=== PATIENT | female | born 1950 | race Caucasian/White ===

== ENCOUNTER 2019-07-25 17:37 | Emergency (ER) | payer BC, OTHER ==
[2019-07-25 17:55] VITALS: BP 137/72; PULSE 88; TEMP 99.6; BMI 28.9
[2019-07-25] MEDS ORDERED: SODIUM CHLORIDE 0.9% 1000 ML INFUS.BAG IV ONE (18:02)
[2019-07-25] MEDS ORDERED: KETOROLAC TROMETHAMINE 15 MG/ML VIAL IVPUSH ONE ×2 (18:02→20:35)
--- NOTE | 2019-07-25 18:08 | PDOC ---
History of Present Illness - General Chief Complaint: Pain Stated Complaint: llq pain, urinary Time Seen by Provider: 07/25/19 17:44 - History of Present Illness Initial Comments: 07/25/19 18:02 69yo female with hx of breast ca s/p double mastectomy, lymph node dissection on the L and hysterectomy with L flank pain today. States pain has been present x 2 days. States assoc with urinary urgency and dark coloration to her urine. No foul odor. NO f/c. C/o intermittent colicky pain in her lower abd that radiates to her groin. Denies vomting or diarrhea. Has had assoc nausea. No prior episodes of similar. Hx of lbp - had a steroid injection to her back a month ago, but had left over tramadol which she took today without relief of the pain. Pt denies cp/sob. No cough. No other complaints. PMHx: breast ca, dvt, emphysema Pshx: b/l mastectomy, hysterectomy All: cipro and keflex 07/25/19 18:08 Past History - Past Medical History Allergies/Adverse Reactions: Allergies Allergy/AdvReac Type Severity Reaction Status Date / Time ciprofloxacin [From Cipro] Allergy Verified 04/13/13 16:15 ciprofloxacin HCl Allergy Verified 04/13/13 16:15 [From Cipro] CODIENE Allergy Uncoded 04/13/13 16:15 Home Medications: Ambulatory Orders Hydrochlorothiazide 50 mg PO 03/05/13 Ondansetron [Zofran *Odt*] 4 mg SL TID PRN #10 od.tablet 03/05/13 Progesterone, Micronized [Progesterone] 200 mg PO 03/05/13 Rosuvastatin Calcium [Crestor] 20 mg PO 03/05/13 Asthma: Yes Cancer: Yes COPD: No GI Disorders: Yes (GERD) HTN: Yes Hypercholesterolemia: Yes - Psycho Social/Smoking Cessation Hx Smoking Status: No Smoking History: Never smoked Have you smoked in the past 12 months: No Number of Cigarettes Smoked Daily: 0 Information on smoking cessation initiated: No Hx Alcohol Use: No Drug/Substance Use Hx: No Review of Systems - Review of Systems Able to Perform ROS?: Yes Is the patient limited Sinhala proficient: No Constitutional: No: Chills, Fever HEENTM: No: Nose Pain, Throat Pain Respiratory: No: Cough, Shortness of Breath Cardiac (ROS): No: Chest Pain, Palpitations ABD/GI: Yes: Nausea, Other (L flank pain). No: Diarrhea, Vomiting : Yes: Frequency, Flank Pain, Urgency. No: Burning, Dysuria, Hematuria Musculoskeletal: No: Back Pain Integumentary: No: Rash Neurological: No: Headache, Tingling, Ataxia All Other Systems: Reviewed and Negative *Physical Exam - Vital Signs Last Vital Signs Temp Pulse Resp BP Pulse Ox 99.6 F 88 20 137/72 94 L 07/25/19 17:38 07/25/19 17:38 07/25/19 17:38 07/25/19 17:38 07/25/19 17:38 - Physical Exam General Appearance: Yes: Nourished, Appropriately Dressed. No: Apparent Distress HEENT: positive: Normal Voice Neck: positive: Supple Respiratory/Chest: positive: Lungs Clear, Normal Breath Sounds. negative: Respiratory Distress Cardiovascular: positive: Regular Rhythm, Regular Rate, S1, S2. negative: Edema Gastrointestinal/Abdominal: positive: Soft, Tenderness (LLQ and suprapubic). negative: Guarding, Rebound Musculoskeletal: positive: Normal Inspection. negative: CVA Tenderness, Vertebral Tenderness Extremity: positive: Normal Inspection, Normal Range of Motion, Other ( ambulatory with a steady gait in the ER). negative: Swelling, Calf Tenderness Integumentary: positive: Normal Color, Dry, Warm. negative: Rash Neurologic: positive: Fully Oriented, Alert, Normal Mood/Affect, Motor Strength 5/5 ED Treatment Course - RADIOLOGY Radiology Studies Ordered: Category Date Time Status ABDOMEN & PELVIS CT W/O CONTR [CT] Stat CT Scan 07/25/19 18:01 Ordered Medical Decision Making - Medical Decision Making 07/25/19 18:10 a/p: 69yo female with L flank pain -colicky intermittent pain that she describes as similar to childbirth -suspect renal colic -no prior episodes -urinary freq/urgency -will send labs, ua, ucx, ct abd/pelvis -will monitor and reassess 07/25/19 18:45 pt with rbc in urine, no infection pending labs and ct pt will be signed out to the oncoming ED Physician pending re-eval and labs/ imaging Discharge - Discharge Information Problems reviewed: Yes Clinical Impression/Diagnosis: Flank pain - Follow up/Referral - Patient Discharge Instructions - Post Discharge Activity
[2019-07-25] MEDS ORDERED: KETOROLAC TROMETHAMINE 30 MG/1 ML VIAL ONE (18:24)
[2019-07-25 18:42] LABS: EPITHELIAL CELLS RARE /hpf
[2019-07-25 18:48] LABS: BASO % 0.4 % (0-2.0); EOS % 0.7 % (0-4.5); HEMOGLOBIN 13.6 GM/dl (10.7-15.3); LYMPH % 10.4 % (8-40); MCH 29.8 pg (25.7-33.7); MCHC 33.1 g/dl (32.0-36.0); MONO % 7.7 % (3.8-10.2); NEUT % 80.8 % (42.8-82.8); PLATELET COUNT 439 K/MM3 (134-434); RBC 4.55 M/mm3 (3.60-5.2); RDW 12.7 % (11.6-15.6); WHITE BLOOD COUNT 15.4 K/mm3 (4.0-10.8)
[2019-07-25 19:02] LABS: ALBUMIN 3.9 g/dl (3.4-5.0); BILIRUBIN,TOTAL 1.1 mg/dl (0.2-1); CALCIUM 9.2 mg/dl (8.5-10); CREATININE 0.7 mg/dl (0.55-1.3); POTASSIUM 3.9 mmol/L (3.5-5.1); TOT PROT 6.5 g/dl (6.4-8.2)
--- NOTE | 2019-07-25 20:34 | PDOC ---
*Physical Exam - Vital Signs Last Vital Signs Temp Pulse Resp BP Pulse Ox 99.6 F 88 20 137/72 94 L 07/25/19 17:38 07/25/19 17:38 07/25/19 17:38 07/25/19 17:38 07/25/19 17:38 ED Treatment Course - LABORATORY CBC & Chemistry Diagram: 07/25/19 18:45 07/25/19 18:45 - ADDITIONAL ORDERS Additional order review: Laboratory Results 07/25/19 07/25/19 18:45 18:12 Sodium 137 Potassium 3.9 Chloride 101 Carbon Dioxide 25 Anion Gap 11 BUN 20.0 H Creatinine 0.7 Est GFR (CKD-EPI)AfAm 102.46 Est GFR (CKD-EPI)NonAf 88.40 Random Glucose 109 H Calcium 9.2 Total Bilirubin 1.1 H AST 40 H ALT 72 H Alkaline Phosphatase 91 Total Protein 6.5 Albumin 3.9 Urine Color Yellow Urine Appearance Clear Urine pH 5.0 Urine Protein Negative Urine Glucose (UA) Negative Urine Ketones Negative Urine Blood Trace-intact Urine Nitrite Negative Urine Bilirubin Negative Urine Urobilinogen 0.2 Ur Leukocyte Esterase Negative Urine RBC 2-5 Urine WBC 0-2 Ur Transition Epith Cell Rare 07/25/19 18:45 RBC 4.55 MCV 90.0 MCHC 33.1 RDW 12.7 MPV 7.0 L Neutrophils % 80.8 Lymphocytes % 10.4 Monocytes % 7.7 Eosinophils % 0.7 Basophils % 0.4 - Medications Given in the ED: ED Medications Discontinued Medications Generic Name Dose Route Start Last Admin Trade Name Freq PRN Reason Stop Dose Admin Ketorolac Tromethamine 15 mg 07/25/19 18:02 07/25/19 18:39 Toradol Injection - IVPUSH 07/25/19 18:03 15 mg ONCE ONE Administration Sodium Chloride 1,000 ml 07/25/19 18:02 07/25/19 18:38 Normal Saline - IV 07/25/19 18:03 1,000 ml ONCE ONE Administration ED Progress Note - Progress Note Progress Note: Care of this patient received from Dr. Gar. Patient had some recurrence of left lower quadrant abdominal pain and received a second dose of Toradol 15 mg IV. Abdominal/pelvic CT performed to evaluate left lower quadrant abdominal pain: Preliminary reading by Imaging on Calldistal descending colon/sigmoid diverticulitis without evidence of pericolonic fluid collection, abscess or pneumoperitoneum. No evidence of hydronephrosis or nephrolithiasis. Results discussed with the patient. She denies nausea or severe pain at this time. Will give first doses of oral antibiotics in the ER. Although the patient does not have a known allergy to penicillin, she does relate allergic reaction to cephalexin that occurred a few months ago. Therefore, fluoroquinolones/cephalosporins/penicillins will be avoided and patient started on Bactrim DS twice a day for 10 days as well as Flagyl 500 mg 3 times a day also for 10 days. The patient is flying home to [place] tomorrow afternoon. She should return to the ER if she has any worsening pain, vomiting or fever in the interim. Also, if she develops rash or difficulty swallowing/breathing/lip or tongue swelling, she should return to the ER immediately. She should follow-up with her general doctor within 48 hours of returning home. She should drink plenty of fluids but ate a light diet for the next several days Discharge - Discharge Information Problems reviewed: Yes Clinical Impression/Diagnosis: Acute diverticulitis Condition: Stable Disposition: HOME - Additional Discharge Information Prescriptions: metroNIDAZOLE [Flagyl -] 500 mg PO TID #30 tablet Sulfamethoxazole/Trimethoprim [Bactrim Ds Tablet] 1 each PO BID #20 tablet - Follow up/Referral - Patient Discharge Instructions Patient Printed Discharge Instructions: Diverticulitis Additional Instructions: Light diet Bactrim DS twice a day for 10 days Flagyl 500 mg 3 times a day for 10 days Tylenol as needed for mild to moderate pain; tramadol as previously prescribed for more severe pain Return to ER immediately if you develop rash/difficulty breathing or swallowing Return to ER if you have persistent severe pain , vomiting or high fever Followup with your doctor within 1-2 days after returning home - Post Discharge Activity
[2019-07-25] MEDS ORDERED: KETOROLAC TROMETHAMINE 15 MG/ML VIAL ONE (20:37)
[2019-07-25] MEDS ORDERED: SULFAMETHOXAZOLE/TRIMETHOPRIM 800MG/160MG D.S. TABLET PO ONE (20:43)
[2019-07-25] MEDS ORDERED: metroNIDAZOLE 250 MG TABLET PO ONE (20:44)
[2019-07-25] MEDS ORDERED: SULFAMETHOXAZOLE/TRIMETHOPRIM 800MG/160MG D.S. TABLET ONE (20:50)
[2019-07-25] MEDS ORDERED: metroNIDAZOLE 250 MG TABLET ONE (20:50)
== END 2019-07-25 20:59 | disposition home or self-care (01) ==
LOC: FER 17:37
PROC: 3E0333Z Introduction of Anti-inflammatory into Peripheral Vein, Percutaneous Approach (ICD-10-PCS; principal; 2019-07-25)
DX: R10.32 Left lower quadrant pain (principal); Z88.8 Allergy status to other drugs, medicaments and biological substances; Z88.6 Allergy status to analgesic agent; K21.9 Gastro-esophageal reflux disease without esophagitis; E78.00 Pure hypercholesterolemia, unspecified; I10 Essential (primary) hypertension; J45.909 Unspecified asthma, uncomplicated; Z85.9 Personal history of malignant neoplasm, unspecified
CPT/HCPCS: 36415; 74176-TC; 80053; 81003; 81015; 85025; 87086; 87186; 99284-25; J7030